=== PATIENT | female | born 1980 | race Caucasian/White ===

== ENCOUNTER 2017-06-28 09:51 | Emergency (ER) | payer BC, MEDICAID ==
[2017-06-28 10:20] VITALS: BMI 29.8
[2017-06-28 11:38] VITALS: RESP 18
--- NOTE | 2017-06-28 13:16 | ED PDOC ---
HPI: Female Pain Time Seen by Provider: 06/28/17 12:42 Chief Complaint (Nursing): Abdominal Pain History Per: Patient Onset/Duration Of Symptoms: Days (2), Gradual Current Symptoms Are (Timing): Still Present Severity: Moderate Quality Of Discomfort: Dull, Aching Associated Symptoms: denies: Fever, Chills, Nausea, Constipation, Urinary Symptoms Alleviating Factors: None Additional History Per: Patient Additional Complaint(s): pt. into ER c/o lower abd. pain since sunday. also c/o vomiting and fever. denies any diarrhea. states in april she was 22 wks preg. when she last saw her [employer]. pt. states she has had vaginal bleeding since then but is not bleeding at present. LMP-01/23/17 Past Medical History Reviewed: Historical Data, Nursing Documentation, Vital Signs Vital Signs: Last Vital Signs Temp 97.0 F L 06/28/17 11:36 Pulse 96 H 06/28/17 11:36 Resp 18 06/28/17 11:36 BP 109/83 06/28/17 11:36 Pulse Ox 98 06/28/17 11:36 - Medical History PMH: No Chronic Diseases - Family History Family History: States: Unknown Family Hx - Living Arrangements Living Arrangements: With Family - Social History Current smoker - smoking cessation education provided: No - Allergies Allergies/Adverse Reactions: Allergies Allergy/AdvReac Type Severity Reaction Status Date / Time No Known Allergies Allergy Verified 06/28/17 10:29 Review of Systems ROS Statement: Except As Marked, All Systems Reviewed And Found Negative Constitutional: Negative for: Fever, Chills Cardiovascular: Negative for: Chest Pain, Palpitations Respiratory: Negative for: Cough, Shortness of Breath Gastrointestinal: Negative for: Nausea, Vomiting, Abdominal Pain Genitourinary Female: Positive for: Pelvic Pain. Negative for: Dysuria, Hematuria, Vaginal Discharge, Vaginal Bleeding Musculoskeletal: Negative for: Neck Pain Physical Exam - Reviewed Nursing Documentation Reviewed: Yes Vital Signs Reviewed: Yes - Physical Exam Appears: Positive for: Uncomfortable Head Exam: Positive for: ATRAUMATIC, NORMAL INSPECTION, NORMOCEPHALIC Eye Exam: Positive for: Normal appearance, EOMI, PERRL Neck: Positive for: Normal, Painless ROM, Supple Cardiovascular/Chest: Positive for: Regular Rate, Rhythm, Chest Non Tender Respiratory: Positive for: Normal Breath Sounds. Negative for: Decreased Breath Sounds, Accessory Muscle Use, Crackles Pulses-Radial (L): 2+ Pulses-Radial (R): 2+ Gastrointestinal/Abdominal: Positive for: Normal Exam, Bowel Sounds, Soft. Negative for: Tenderness Back: Positive for: Normal Inspection. Negative for: L CVA Tenderness, R CVA Tenderness Extremity: Positive for: Normal ROM. Negative for: Tenderness, Pedal Edema Neurologic/Psych: Positive for: Alert, senior etl developer II-XII, Oriented. Negative for: Motor/Sensory Deficits - Laboratory Results Result Diagrams: 06/28/17 13:08 06/28/17 13:08 - ECG O2 Sat by Pulse Oximetry: 98 Pulse Ox Interpretation: Normal Disposition - Clinical Impression Clinical Impression: Abdominal pain in female - Patient ED Disposition Is Patient to be Admitted: Transfer of Care Counseled Patient/Family Regarding: Studies Performed, Diagnosis - Disposition Disposition Time: 15:17 Condition: STABLE Forms: [facility])
[2017-06-28 14:08] LABS: BASO % 0.6 % (0.0-2.0); EOS # 0.1 K/uL (0.0-0.7); EOS % 2.3 % (0.0-4.0); HEMOGLOBIN 14.2 g/dL (12.0-16.0); LYMPH # 1.8 K/uL (1.0-4.3); LYMPH % 33.3 % (20.0-40.0); MEAN CELL VOLUME 91.2 fl (81.0-99.0); MEAN CORPUSCULAR HEMOGLOBIN 30.2 pg (27.0-31.0); MEAN CORPUSCULAR HGB CONC 33.1 g/dL (33.0-37.0); MEAN PLATELET VOLUME 7.9 fl (7.2-11.7); MONO # 0.5 K/uL (0.0-0.8); MONO % 10.1 % (0.0-10.0); NEUT # 2.9 K/uL (1.8-7.0); NEUT % 53.7 % (50.0-75.0); NRBC % 0.2 % (0.0-0.0); RBC 4.71 Mil/uL (3.80-5.20); RED CELL DISTRIBUTION WIDTH 12.4 % (11.5-14.5); WHITE BLOOD COUNT 5.4 K/uL (4.8-10.8)
[2017-06-28 14:24] LABS: SQUAMOUS EPITHIAL 3 /hpf (0-5); URINE BILIRUBIN NEGATIVE (NEGATIVE); URINE BLOOD NEGATIVE (NEGATIVE); URINE CLARITY SLIGHTY-CLOUDY (Clear); URINE COLOR YELLOW (YELLOW); URINE GLUCOSE (UA) 150 mg/dL (Normal); URINE LEUKOCYTE ESTERASE NEG Leu/uL (Negative); URINE NITRATE NEGATIVE (NEGATIVE); URINE PROTEIN NEGATIVE (NEGATIVE)
[2017-06-28] MEDS ORDERED: Dextrose 50% SYRINGE Inj (50 ml) ONE (14:28)
[2017-06-28] MEDS ORDERED: Dextrose 50% SYRINGE Inj (50 ml) IVP ONE (14:50)
[2017-06-28] MEDS ORDERED: Dextrose 5%/0.9% NS 1,000 ML IV SCH (15:00)
[2017-06-28 15:08] LABS: HCG,QUALITATIVE URINE NEGATIVE (NEGATIVE)
[2017-06-28 15:12] LABS: ALBUMIN 3.7 g/dL (3.5-5.0); ALT/SGPT 23 U/L (9-52); AMYLASE 35 U/L (30-110); AST/SGOT 13 U/L (14-36); BLOOD UREA NITROGEN 9 mg/dl (7-17); CALCIUM 9.2 mg/dL (8.4-10.2); GFR AFRICAN-AMERICAN > 60; GFR NON-AFRICAN AMERICAN > 60; LIPASE 15 U/L (23-300)
--- NOTE | 2017-06-28 15:18 | ED PDOC ---
- Laboratory Results Result Diagrams: 06/28/17 13:08 06/28/17 13:08 - ECG O2 Sat by Pulse Oximetry: 98 (RA) Pulse Ox Interpretation: Normal Medical Decision Making Medical Decision Making: Time: 15:14 Patient endorsed to me by Dr. Mata pending ER workup, re-evaluation and ER disposition. Labs unremarkable. Accession No. : [id number] Patient Name / ID : JOSE ANTONIO SHAH / [id number] Exam Date : 06/28/2017 15:43:55 ( Approved ) Study Comment : Sex / Age : F / 36Y Creator : Clinton Dixon MD Dictator : Clinton Dixon MD Molecular Technologist : Salvager : Clinton Dixon MD Approver2 : Report Date : 06/28/2017 18:18:27 My Comment : HISTORY: pelvic pain r/o ovarian torsion. Patient also reportedly has a prior miscarriage history 05/2017. COMPARISON: No prior comparison available. TECHNIQUE: Transvaginal pelvic ultrasound was performed with images submitted in longitudinal and transverse planes. FINDINGS: UTERUS: Measures 7.2 x 3.1 x 4.5 cm. Normal in size and appearance. No fibroid or other mass lesion seen. ENDOMETRIUM: Measures 3.9 mm in diameter. No definite pattern of retained products of conception. Overall endometrial pattern appears unremarkable. CERVIX: A nabothian cyst identified in the posterior cervix 7 mm greatest dimension. Cervix otherwise appears unremarkable. RIGHT OVARY: Measures 2.9 x 2.4 x 2.7 cm. No solid mass. Normal flow. A few follicles are seen within the right ovary. LEFT OVARY: Measures 2.9 x 2.1 x 2.2 cm. No solid mass. Normal flow. A few follicles are seen within the left ovary. FREE FLUID: No significant free fluid noted. OTHER FINDINGS: None. IMPRESSION: 1. No evidence to suggest ovarian torsion bilaterally. A few follicles are scattered either ovary with the adnexal compartments appearing grossly nonfocal. 2. Unremarkable appearing endometrium. No definite pattern to suggest retained products of conception. Pt no longer . Reviewed history with patient. She had been in April first trimester but her last ultrasound had low FHR. She had large amount bleeding in May but did not get further evaluation. Given this history, pt likely had miscarriage, complete. Scribe Attestation: Documented by Liset Babin, acting as a scribe for Jasmyne Paredes MD Provider Scribe Attestation: All medical record entries made by the Scribe were at my direction and personally dictated by me. I have reviewed the chart and agree that the record accurately reflects my personal performance of the history, physical exam, medical decision making, and the department course for this patient. I have also personally directed, reviewed, and agree with the discharge instructions and disposition. Disposition - Clinical Impression Clinical Impression: Miscarriage - POA Present On Arrival: None - Disposition Referrals: [facility] [Outside] Disposition: Routine/Home Disposition Time: 18:38 Condition: GOOD Additional Instructions: PLEASE CONTINUE TO TAKE VITAMINS IF YOU ARE GOING TO CONTINUE TO TRY TO GET EAT AT LEAST 3 MEALS A DAY AND ALWAYS CARRY SNACKS FOR WHEN YOU ARE HUNGRY. Instructions: Spontaneous Miscarriage (ED), Non-diabetic Hypoglycemia (ED) Forms: [facility] ED School/Work Excuse
--- NOTE | 2017-06-28 18:20 | US ---
HISTORY: pelvic pain r/o ovarian torsion. Patient also reportedly has a prior miscarriage history 05/2017. COMPARISON: No prior comparison available. TECHNIQUE: Transvaginal pelvic ultrasound was performed with images submitted in longitudinal and transverse planes. FINDINGS: UTERUS: Measures 7.2 x 3.1 x 4.5 cm. Normal in size and appearance. No fibroid or other mass lesion seen. ENDOMETRIUM: Measures 3.9 mm in diameter. No definite pattern of retained products of conception. Overall endometrial pattern appears unremarkable. CERVIX: A nabothian cyst identified in the posterior cervix 7 mm greatest dimension. Cervix otherwise appears unremarkable. RIGHT OVARY: Measures 2.9 x 2.4 x 2.7 cm. No solid mass. Normal flow. A few follicles are seen within the right ovary. LEFT OVARY: Measures 2.9 x 2.1 x 2.2 cm. No solid mass. Normal flow. A few follicles are seen within the left ovary. FREE FLUID: No significant free fluid noted. OTHER FINDINGS: None. IMPRESSION: 1. No evidence to suggest ovarian torsion bilaterally. A few follicles are scattered either ovary with the adnexal compartments appearing grossly nonfocal. 2. Unremarkable appearing endometrium. No definite pattern to suggest retained products of conception.
[2017-06-28 22:44] VITALS: TEMP 98.2
[2017-06-28 23:04] VITALS: BP 125/86; PULSE 86; O2SAT 98
== END 2017-06-28 18:52 | disposition home or self-care (01) ==
LOC: H.EROB2 09:51 → H.ER 09:51 → H.EROB 10:09 → H.EROB2 18:52
DX: O03.9 Complete or unspecified spontaneous abortion without complication (principal); Z3A.00 Weeks of gestation of pregnancy not specified
CPT/HCPCS: 76830; 80053; 81003; 82150; 82948; 83690; 84702; 84703; 85025; 87491; 87591; 96374; 99284; J7042